=== PATIENT | male | born 1940 | race Caucasian/White ===

== ENCOUNTER → 2023-03-22 | Outpatient (CLI) | payer MEDICARE ==
--- NOTE | 2023-03-22 13:16 | CT ---
EXAMINATION TYPE: CT chest wo con CT DLP: 211 mGycm, Automated exposure control for dose reduction was used. DATE OF EXAM: 03/22/2023 12:41 PM COMPARISON: None CLINICAL INDICATION:Male, 82 years old with history of R06.09 dyspnea; PHH, TECHNIQUE: Multiple axial images of the chest at selected intervals were obtained in prone and supine imaging. Please note that due to interval acquisition images as defined by high-resolution CT protoc ol the entire lung parenchyma is not evaluated, therefore small nodular densities may not be visualiz ed. Contrast used:(None if empty) Oral contrast used: (None if empty) FINDINGS: LUNGS: There is no evidence of interstitial thickening, significant groundglass opacity, honeycombing or architectural distortion in the lungs. No acute area of infiltrative or consolidative change. LARGE AIRWAYS: Central airways are patent. No dynamic airway collapse on expiratory imaging. No bronc hiectasis PLEURA: No pleural effusion or thickening. HEART AND PERICARDIUM: The heart is mildly enlarged for size. There is coronary artery calcifications present. There is no pericardial effusion. MEDIASTINUM AND RALEIGH: No mediastinal or hilar lymphadenopathy or soft tissue mass. VESSELS: The thoracic aorta is normal in course and caliber. CHEST WALL AND DIAPHRAGM: Normal. LOWER NECK: Normal. MUSCULOSKELETAL: No acute fracture. Digital degeneration changes with osteophyte formation noted. UPPER ABDOMEN: Unremarkable. Bilateral mild affecting cartilage measuring up to 8 mm bilaterally. IMPRESSION: No evidence for interstitial lung disease or acute intrathoracic process.
== END | disposition home or self-care (01) ==
LOC: RADCTMAIN 12:16
PROVIDERS: ATTEND Internal Medicine Critical Care Medicine
DX: R06.09 Other forms of dyspnea (principal)
CPT/HCPCS: 71250